=== PATIENT | female | born 1950 | race Two or more races ===

== ENCOUNTER → 2023-03-11 | Emergency (ER) | payer OTHER ==
[~2023-03-11] VITALS: Ht 154.9 cm; Wt 65.8 kg
[~2023-03-11] MED LIST: ATORVASTATIN CA10 MG PO; CLOPIDOGREL BIS75 MG PO; TYLENOL ARTHRI650 MG PO
== END | disposition home or self-care (01) ==
LOC: ER 09:16
DX: M25.552 Pain in left hip (principal); I11.9 Hypertensive heart disease without heart failure; Z88.6 Allergy status to analgesic agent